=== PATIENT | female | born 1985 | race African-American/Black ===

== ENCOUNTER 2018-01-02 02:00 | Emergency (ER) | payer BC, OTHER ==
[2018-01-02 02:09] VITALS: BP 117/73; PULSE 95; TEMP 98.1; BMI 29.2
--- NOTE | 2018-01-02 02:14 | PDOC ---
History of Present Illness - General Chief Complaint: Injury Stated Complaint: BREAST PAIN Time Seen by Provider: 01/02/18 02:14 - History of Present Illness Initial Comments: Previously healthy 32 year old female presenting with left nipple pain and bleeding after her nipple ring was accidentally removed traumatically. She had some minor bleeding from the site that stopped on its own but denies severe pain from the site. Denies or current breast feeding. The piercing was [age] years old mature. Denies swelling, discharge, fevers, chills, nausea, vomiting, diarrhea, constipation, or other symptoms. 01/02/18 03:04 Past History - Past Medical History Allergies/Adverse Reactions: Allergies Allergy/AdvReac Type Severity Reaction Status Date / Time No Known Allergies Allergy Verified 01/02/18 02:05 Home Medications: Ambulatory Orders NK [No Known Home Medication] 01/02/18 COPD: No - Suicide/Smoking/Psychosocial Hx Smoking History: Never smoked Review of Systems - Review of Systems Constitutional: No: Chills, Diaphoresis, Fever HEENTM: No: Blurred Vision, Nose Congestion Respiratory: No: Cough, Shortness of Breath Cardiac (ROS): No: Chest Pain, Edema, Irregular Heart Rate ABD/GI: No: Constipated, Diarrhea, Nausea, Vomiting : No: Burning, Dysuria, Discharge Musculoskeletal: No: Back Pain, Joint Pain Integumentary: Yes: Erythema, Lesions. No: Lumps, Rash Neurological: No: Headache, Numbness Hematologic/Lymphatic: No: Anemia, Blood Clots, Easy Bleeding *Physical Exam - Vital Signs Last Vital Signs Temp Pulse Resp BP Pulse Ox 98.1 F 95 H 18 117/73 99 01/02/18 02:05 01/02/18 02:05 01/02/18 02:05 01/02/18 02:05 01/02/18 02:05 - Physical Exam General Appearance: Yes: Nourished, Appropriately Dressed. No: Apparent Distress HEENT: positive: EOMI, ALVAREZ, Normal ENT Inspection, Normal Voice Neck: positive: Trachea midline, Normal Thyroid, Supple. negative: Tender, Rigid Respiratory/Chest: positive: Lungs Clear, Normal Breath Sounds. negative: Chest Tender, Respiratory Distress, Accessory Muscle Use Cardiovascular: positive: Regular Rhythm, Regular Rate Gastrointestinal/Abdominal: positive: Normal Bowel Sounds, Flat, Soft. negative : Tender Musculoskeletal: positive: Normal Inspection. negative: Decreased Range of Motion Extremity: positive: Normal Capillary Refill, Normal Inspection, Normal Range of Motion. negative: Tender Integumentary: positive: Normal Color, Dry, Warm, Other (Left nipple with dried blood aroudn the margins of a previous peircing site measuring 1.5 cms in length with good approximation of laceration edges.) Neurologic: positive: Fully Oriented, Alert, Normal Mood/Affect, Normal Response , Motor Strength 5/5 Procedures - Laceration/Wound Repair Left Anterior Breast Wound Length: to 2.5 cm Wound Explored: clean Wound's Depth, Shape: superficial Irrigated w/ Saline: Yes Betadine Prep: No Wound Debrided: minimal Wound Repaired With: Dermabond Layer Closure: No Progress: Well approximated wound edges sparing the nipple duct in the center. Patient not complaining of pain. 01/02/18 04:29 Medical Decision Making - Medical Decision Making 32 yearold healthy female s/p accidental traumatic nipple ring removal. Patient given TDAP and nipple was approximated per procedure note. Patient discharged with return precautions and plastic surgery follow up instructions. 01/02/18 04:26 *DC/Admit/Observation/Transfer Diagnosis at time of Disposition: Laceration - Discharge Dispostion Disposition: HOME Condition at time of disposition: Improved Admit: No - Referrals Referrals: Nino Keller MD [Primary Care Provider] - Stanley Carr MD [Staff Physician] - - Patient Instructions Printed Discharge Instructions: DI for Laceration Repair With Dermabond Additional Instructions: We repaired your nipple with dermabond and we need you to keep it dry for the next two days. You can clean it with soap and water after two days but do not use anything too abrasive. Please follow up with Dr. Carr this week to advise on how to completely heal this wound. Please return to the ED if you notice any swelling, discharge, redness, fevers, or other issues. - Post Discharge Activity
[2018-01-02] MEDS ORDERED: DIPHTH,PERTUSS(ACELL),TET 0.5 ML DISP.SYRIN IM ONE (03:17)
--- NOTE | 2018-01-02 03:25 | PDOC ---
Attending Attestation - Resident Resident Name: Yvette Medley - ED Attending Attestation I have performed the following: I have examined & evaluated the patient, The case was reviewed & discussed with the resident, I agree w/resident's findings & plan, Exceptions are as noted - HPI HPI: 01/02/18 03:23 32 yo F with left nipple ring traumatically pulled out when caught in hair of her partner, now with laceration. happened several hours prior to arrival. no active bleeding. tetanus unknown. pain mild. no mod factors. - Physicial Exam PE: 01/02/18 03:23 awake alert nad lungs clear bilat, heart rrr nomrg. abd soft nt nd. ext wwp. skin : left nipple laceration horizontal 1 cm, into nipple tissue. no active bleeding. - Medical Decision Making 01/02/18 03:22 laceration nipple, s/p ring pulled out traumatically. currently no active bleeding. will dermabond. avoid scarring to nipple or injury to the duct. refer to plastic surgery for further intervention as necessary. <Rosette Castillo - Last Filed: 01/02/18 03:21> - HPI HPI: 01/02/18 04:30 Patient is a 32 year old female with no significant past medical history of who presents to the ED with complaints of left nipple pain, s/p laceration. Patient reports nipple was accidently ripped off after her partners hair became caught on it followed by her moving her head away from the patient's chest. She reports the piercing was 2 years ago, stating that she is not currently or . Denies chest pain, Sob. Denies nausea, vomiting, Denies fevers, chills. Denies any other symptoms. Allergies: None Social history: No smoking. No alcohol. No illicit drugs. Surgical history: None PMD: Dr. Keller <Jhonny Lopez - Last Filed: 01/02/18 04:30>
== END 2018-01-02 04:18 | disposition home or self-care (01) ==
LOC: JER 02:00
PROC: 3E0234Z Introduction of Serum, Toxoid and Vaccine into Muscle, Percutaneous Approach (ICD-10-PCS; principal; 2018-01-02)
PROC: 0HQUXZZ (ICD-10-PCS; 2018-01-02)
DX: S21.012A Laceration without foreign body of left breast, initial encounter (principal); X58.XXXA Exposure to other specified factors, initial encounter; Y93.89 Activity, other specified; Y92.9 Unspecified place or not applicable; Y99.8 Other external cause status
CPT/HCPCS: 12001; 90471; 90715; 99282-25

== ENCOUNTER 2018-03-02 18:16 | Emergency (ER) | payer OTHER ==
[2018-03-02 18:25] VITALS: BP 126/65; PULSE 55; TEMP 98.5; BMI 30.1
--- NOTE | 2018-03-02 18:43 | PDOC ---
History of Present Illness - General Chief Complaint: Ear Problem Stated Complaint: EAR PROBLEM Time Seen by Provider: 03/02/18 18:29 History Source: Patient Exam Limitations: No Limitations - History of Present Illness Initial Comments: 03/02/18 18:52 Pt. is a 32 y/o F who presents to the ED with 4 days of L ear pain. States that it feels like she is listening through a cloud. Denies sore throat, fever, cough , n/v/d. Past History - Travel Traveled outside of the country in the last 30 days: No Close contact w/someone who was outside of country & ill: No - Past Medical History Allergies/Adverse Reactions: Allergies Allergy/AdvReac Type Severity Reaction Status Date / Time No Known Allergies Allergy Verified 03/02/18 18:22 Home Medications: Ambulatory Orders Amoxicillin - [Amoxicillin 500mg Capsule -] 500 mg PO BID #14 capsule 03/02/18 COPD: No DVT: No - Suicide/Smoking/Psychosocial Hx Smoking History: Never smoked Have you smoked in the past 12 months: No Information on smoking cessation initiated: No Hx Alcohol Use: No Drug/Substance Use Hx: No Substance Use Type: None Review of Systems - Review of Systems Able to Perform ROS?: Yes Comments:: 03/02/18 18:42 CONSTITUTIONAL: Absent: fever, chills, diaphoresis, generalized weakness, malaise, loss of appetite HEENT: Present: L ear pain Absent: rhinorrhea, nasal congestion, throat pain, throat swelling, difficulty swallowing, mouth swelling, eye pain, visual Changes CARDIOVASCULAR: Absent: chest pain, loss of consciousness, palpitations, irregular heart rate, peripheral edema RESPIRATORY: Absent: cough, shortness of breath, dyspnea with exertion, orthopnea, wheezing, stridor, hemoptysis NEUROLOGIC: Absent: headache, focal weakness or paresthesias, dizziness, unsteady gait, seizure, mental status changes, bladder or bowel incontinence Is the patient limited Mal[place]ian proficient: No *Physical Exam - Vital Signs Last Vital Signs Temp Pulse Resp BP Pulse Ox 98.5 F 55 L 18 126/65 100 03/02/18 18:23 03/02/18 18:23 03/02/18 18:23 03/02/18 18:23 03/02/18 18:23 - Physical Exam Comments: 03/02/18 18:43 GENERAL: The patient is awake, alert, and fully oriented, in no acute distress. HEAD: Normal with no signs of trauma. EYES: Pupils equal, round and reactive to light, extraocular movements intact, sclera anicteric, conjunctiva clear. EARS: L TM bulging and edematous, poor land mark. R TM with good landmarks and cone of light. Pearly elizabeth in color. EXTREMITIES: Normal range of motion, no edema. NEUROLOGICAL: Normal speech, normal gait. PSYCH: Normal mood, normal affect. SKIN: Warm, Dry, normal turgor, no rashes or lesions noted. Medical Decision Making - Medical Decision Making 03/02/18 18:52 Pt. is a 32 y/o F who presents to the ED with clinical otitis media of the L ear. Will dc home at this time with amoxicillin. Return precautions given. Pt understands all dc instructions and all questions were answered. *DC/Admit/Observation/Transfer Diagnosis at time of Disposition: Otitis media Qualifiers: Otitis media type: suppurative Chronicity: acute Laterality: left Recurrence: not specified as recurrent Spontaneous tympanic membrane rupture: without spontaneous rupture Qualified Code(s): H66.002 - Acute suppurative otitis media without spontaneous rupture of ear drum, left ear - Discharge Dispostion Disposition: HOME Condition at time of disposition: Stable Decision to Admit order: No - Referrals Referrals: Nino Keller MD [Primary Care Provider] - - Patient Instructions Printed Discharge Instructions: DI for Otitis Media (Middle Ear Infection)- Child Additional Instructions: You have an ear infection Please take the antibiotics as prescribed. Take the entire dose even if you feel better. You may take Tylenol or Motrin as needed for pain. Follow the manufacture's instructions. Do not put anything in the ear. Keep the ear clean and dry Follow up with your primary care doctor within the week. Return to the ED if you have worsening pain, fevers, chills, or have any changes in your symptoms. - Post Discharge Activity Forms/Work/School Notes: Back to Work
== END 2018-03-02 18:56 | disposition home or self-care (01) ==
LOC: JERFT 18:16
DX: H66.002 Acute suppurative otitis media without spontaneous rupture of ear drum, left ear (principal)
CPT/HCPCS: 99281-25